=== PATIENT | female | born 1985 | race Caucasian/White ===

== ENCOUNTER 2021-08-01 10:39 | Emergency (ER) | payer MEDICARE, MEDICAID, SELFPAY ==
--- NOTE | 2021-08-01 12:17 | PC.NURSE ---
PT CALLED 3 TIMES NO RESPONSE LWT
== END 2021-08-01 12:18 | disposition left against medical advice (07) ==
PROVIDERS: Emergency Provider Emergency Medicine; PCP Family Medicine
DX: R05.9 Cough, unspecified (principal)